=== PATIENT | female | born 1960 | race Caucasian/White ===

== ENCOUNTER 2021-09-10 21:28 | Emergency (ER) | payer BC ==
[2021-09-10 21:35] VITALS: BP 131/73; PULSE 66
--- NOTE | 2021-09-10 22:17 | EDM.PDOC ---
<Joshua Sanches - Last Filed: 09/10/21 22:17> ED HPI GENERAL MEDICAL PROBLEM - General Chief Complaint: Respiratory Problem Stated Complaint: SOB Time Seen by Provider: 09/10/21 22:17 - Related Data Allergies Allergy/AdvReac Type Severity Reaction Status Date / Time No Known Allergies Allergy Verified 09/10/21 21:33 Home Meds: Home Meds Albuterol [Proventil HFA] 2 puff INH Q4H PRN #1 inhaler 09/26/18 [Rx] Codeine/Promethazine [Phenergan with Codeine] 5 - 10 ml PO Q6HR PRN #240 ml 09/26/18 [Rx] Doxycycline [Vibramycin] 100 mg PO BID #20 cap 09/26/18 [Rx] FLUoxetine [PROzac] 10 mg PO DAILY 09/26/18 [History] Levothyroxine [Synthroid] 88 mcg PO DAILY 09/26/18 [History] atorvaSTATin [Lipitor] 10 mg PO DAILY 09/26/18 [History] Benzonatate [Tessalon Perles] 100 mg PO TID PRN #30 cap 09/10/21 [Rx] Past Medical History 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 History: tubal ligation, hysterectomy Musculoskeletal History: Reports: Neck Pain, Chronic Psychiatric History: Reports: Anxiety, Depression Endocrine/Metabolic History: Reports: Hypothyroidism - Past Surgical History HEENT Surgical History: Reports: Naso-Sinus Surgery Musculoskeletal Surgical History: Reports: Other (See Below) Other Musculoskeletal Surgeries/Procedures:: neck fusion Social & Family History - Tobacco Use Tobacco Use Status *Q: Unknown Ever Used Tobacco - Caffeine Use Caffeine Use: Reports: Coffee Departure - Departure Disposition: Home, Self-Care 01 Clinical Impression: Cough - Discharge Information Prescriptions: Benzonatate [Tessalon Perles] 100 mg PO TID PRN #30 cap PRN Reason: Cough Referrals: Gabrielle Ta CHILD CARE COUNSELOR [Primary Care Provider] - Forms: ED Department Discharge Additional Instructions: You were seen in the emergency department this evening with cough and shortness of breath. While you are in the emergency department your oxygen saturations were 99 to 100%. Your lung sounds were clear bilaterally. Chest x-ray was clear and did not show any sign of pneumonia. Lab studies were completed which do not show any sign of infection or inflammatory issues. Electrolytes were all within normal limits as well as kidney function. Covid, influenza a and B and RSV swabs were all negative. Recommend that you follow-up with your primary care provider early next week as you may need pulmonary function studies. Commend using a humidifier in your room. May also try applying Vicks to the bottom of your feet at bedtime. Have sent prescription for medication called Nicole Dong to your pharmacy. You can pick this up tomorrow. You may take 1 pill up to 3 times daily for cough. Recommend taking 1 before bed to be able to get restful sleep. Sepsis Event Note (ED) - Evaluation Sepsis Screening Result: No Definite Risk <Katya Yusuf - Last Filed: 09/10/21 23:21> ED HPI GENERAL MEDICAL PROBLEM - General Source of Information: Reports: Patient History Limitations: Reports: No Limitations - History of Present Illness INITIAL COMMENTS - FREE TEXT/NARRATIVE: 61-year-old female presents to the emergency department this evening with a 1 to 2-month history of cough and shortness of breath. Patient denies any recent fever, chills, nausea, vomiting or diarrhea. She denies any complaints of headache or sore throat. She denies body aches. Chief complaint is persistent cough for which she states is productive of yellow mucus. Patient does have a history of smoking approximately 20 years and is around her who currently smokes. She states her primary care provider is Ramona Ta. She states that even though she has been ill for 1 to 2 months she has not been evaluated by her primary care provider. She has had 2 Covid vaccinations however has not had her Covid booster. Patient states she does have a history of asthma however does not have a nebulizer at home. ED ROS GENERAL - Review of Systems Review Of Systems: Comprehensive ROS is negative, except as noted in HPI. ED EXAM, GENERAL - Physical Exam Exam: See Below Exam Limited By: No Limitations General Appearance: Alert, WD/WN, No Apparent Distress, Anxious Ears: Normal External Exam, Hearing Grossly Normal Nose: Normal Inspection Throat/Mouth: Normal Inspection, Normal Lips, Normal Voice, No Airway Compromise Head: Atraumatic, Normocephalic Neck: Normal Inspection, Supple Respiratory/Chest: No Respiratory Distress, Lungs Clear, Normal Breath Sounds, No Accessory Muscle Use, Chest Non-Tender Cardiovascular: Normal Peripheral Pulses, Regular Rate, Rhythm, No Edema, No Murmur Peripheral Pulses: 2+: Radial (L), Radial (R) GI/Abdominal: Normal Bowel Sounds, Soft, Non-Tender, No Distention (Female) Exam: Deferred Rectal (Female) Exam: Deferred Back Exam: Normal Inspection Extremities: Normal Inspection, Normal Range of Motion, Non-Tender, No Pedal Edema, Normal Capillary Refill Neurological: Alert, Oriented, Normal Cognition Psychiatric: Anxious Skin Exam: Warm, Dry, Intact, Normal Color, No Rash Lymphatic: No Adenopathy Course - Vital Signs Text/Narrative:: As stated above, patient presents with 1 to 2-month history of cough. Upon exam, the patient is being quite dramatic and forcing a dry sounding nonproductive cough in between sentences. When patient is distracted she does stop coughing. She states she cannot breathe however her O2 saturations are 99 to 100% on room air. Lung sounds are clear to all gonzalez. Patient is afebrile and hemodynamically stable. Will obtain portable chest x-ray as well as Covid, influenza a and B and RSV testing on the patient. We will also obtain lab st udies to include a CBC, CMP, magnesium and a C-reactive protein. We will medicate the patient with 1 Tessalon Perles and give her a lozenge. Last Recorded V/S: Last Vital Signs Temp 97.6 F 09/10/21 21:33 Pulse 66 09/10/21 21:33 Resp 15 09/10/21 21:33 BP 131/73 09/10/21 21:33 Pulse Ox 100 09/10/21 21:33 - Orders/Labs/Meds Orders: Active Orders 24 hr Category Date Time Status Chest 1V Frontal [CR] Stat Exams 09/10/21 22:17 Taken Benzocaine/Cetylpyrd/Menthol [Cepacol Sore Throat] Med 09/10/21 22:19 Active 1 lozenge MUCMEM Q1H PRN Isolation [COMM] Routine Oth 09/10/21 22:18 Ordered Medication Orders Benzocaine/Menthol (Benzocaine/Cetylpyridinium/Menthol Lozenge) 1 lozenge MUCMEM Q1H PRN PRN Reason: Cough Labs: Laboratory Tests 11/17/21 11/17/21 11/17/21 Range/Units 21:28 21:28 22:20 WBC 6.32 (3.98-10.04) K/mm3 RBC 3.74 L (3.98-5.22) M/mm3 Hgb 11.8 (11.2-15.7) gm/dl Hct 36.7 (34.1-44.9) % MCV 98.1 H (79.4-94.8) fl MCH 31.6 (25.6-32.2) pg MCHC 32.2 (32.2-35.5) g/dl RDW Std Deviation 45.9 (36.4-46.3) fL Plt Count 209 (182-369) K/mm3 MPV 10.5 (9.4-12.3) fl Neut % (Auto) 44.1 (34.0-71.1) % Lymph % (Auto) 46.2 (19.3-51.7) % [place] % (Auto) 6.5 (4.7-12.5) % Eos % (Auto) 2.1 (0.7-5.8) Baso % (Auto) 0.9 (0.1-1.2) % Neut # (Auto) 2.79 (1.56-6.13) K/mm3 Lymph # (Auto) 2.92 (1.18-3.74) K/mm3 [place] # (Auto) 0.41 H (0.24-0.36) K/mm3 Eos # (Auto) 0.13 (0.04-0.36) K/mm3 Baso # (Auto) 0.06 (0.01-0.08) K/mm3 Sodium 137 (136-145) mEq/L Potassium 4.2 (3.5-5.1) mEq/L Chloride 102 (98-107) mEq/L Carbon Dioxide 28 (21-32) mEq/L Anion Gap 11.2 (5-15) BUN 21 H (7-18) mg/dL Creatinine 0.8 (0.55-1.02) mg/dL Est Cr Clr Drug Dosing 59.89 mL/min Estimated GFR (MDRD) > 60 (>60) mL/min BUN/Creatinine Ratio 26.3 H (14-18) Glucose 102 H (70-99) mg/dL Calcium 8.7 (8.5-10.1) mg/dL Magnesium 2.1 (1.8-2.4) mg/dL Total Bilirubin 0.6 (0.2-1.0) mg/dL AST 22 (15-37) U/L ALT 28 (14-59) U/L Alkaline Phosphatase 60 (46-116) U/L C-Reactive Protein <0.2 (<1.0) mg/dL Total Protein 6.6 (6.4-8.2) g/dl Albumin 3.8 (3.4-5.0) g/dl Globulin 2.8 gm/dL Albumin/Globulin Ratio 1.4 (1-2) Influenza Type A RNA Negative (NEGATIVE) RSV RNA (INAAT) Negative (NEGATIVE) Influenza Type B RNA Negative (NEGATIVE) SARS-CoV-2 RNA (FABY) Negative (NEGATIVE) Meds: Medications Generic Name Dose Route Start Last Admin Trade Name Freq PRN Reason Stop Dose Admin Benzocaine/Menthol 1 lozenge 09/10/21 22:19 Benzocaine/Cetylpyridinium/Menthol Lozenge MUCMEM Q1H PRN Cough Discontinued Medications Generic Name Dose Route Start Last Admin Trade Name Freq PRN Reason Stop Dose Admin Benzonatate 100 mg 09/10/21 22:20 09/10/21 22:38 Benzonatate 100 Mg Cap PO 09/10/21 22:21 100 mg ONETIME ONE Administration - Re-Assessments/Exams Free Text/Narrative Re-Assessment/Exam: 09/10/21 23:13 Audible chest x-ray was reviewed by myself and Dr. Sanches and nothing acute is appreciated. Formal radiologist report is pending. Hematology is unremarkable, chemistry also unremarkable other than a glucose of 102, C-reactive protein less than 0.2, serology is negative for influenza, RSV and Covid. Patient will be discharged home with recommendations that she follow-up with her primary care provider. Departure - Departure Time of Disposition: 23:13 Condition: Good Sepsis Event Note (ED) - Focused Exam Vital Signs: Vital Signs Temp Pulse Resp BP Pulse Ox 09/10/21 21:33 97.6 F 66 15 131/73 100 - My Orders Last 24 Hours: My Active Orders 09/10/21 22:17 Chest 1V Frontal [CR] Stat 09/10/21 22:18 Isolation [COMM] Routine 09/10/21 22:19 Benzocaine/Cetylpyrd/Menthol [Cepacol Sore Throat] 1 lozenge MUCMEM Q1H PRN - Assessment/Plan Last 24 Hours: My Active Orders 09/10/21 22:17 Chest 1V Frontal [CR] Stat 09/10/21 22:18 Isolation [COMM] Routine 09/10/21 22:19 Benzocaine/Cetylpyrd/Menthol [Cepacol Sore Throat] 1 lozenge MUCMEM Q1H PRN
[2021-09-10] MEDS ORDERED: Benzocaine/Cetylpyridinium/Menthol Lozenge MUCMEM PRN (22:19)
[2021-09-10] MEDS ORDERED: Benzonatate 100 MG Cap PO ONE (22:20)
[2021-09-10] MEDS ORDERED: Benzonatate 100 MG Cap ONE (22:32)
[2021-09-10 23:06] LABS: CORONAVIRUS COVID-19 NAA NEGATIVE (NEGATIVE)
--- NOTE | 2021-09-11 06:07 | CR ---
Chest: Portable view of the chest was obtained. Comparison: Prior chest x-ray of 09/26/18. Heart size and mediastinum are within normal limits for portable technique. Lungs are clear with no acute parenchymal change. Stable scoliosis is noted within the spine. Impression: 1. Nothing acute is appreciated on portable chest x-ray. Diagnostic code #2
== END 2021-09-10 23:32 | disposition home or self-care (01) ==
LOC: JD.ED 21:28
DX: R05.9 Cough, unspecified (principal); E03.9 Hypothyroidism, unspecified; Z79.899 Other long term (current) drug therapy; Z20.822 Contact with and (suspected) exposure to COVID-19
CPT/HCPCS: 0241U; 36415; 71045; 71045-26; 80053; 83735; 85025; 86140; 99283; 99283-25; A9270-GY

== ENCOUNTER 2023-10-05 07:02 | Day surgery (SDC) | payer BC ==
[~2023-10-05 07:02] MED LIST: Lactated Ringers 1,000 ML IV SCH; Lidocaine 1%/Sod Bicarbonate in NS 8.4% 1 ML Syringe IDERM PRN; Sodium Chloride 0.9% 10 ML Syringe FLUSH PRN; Sodium Chloride 0.9% 10 ML Syringe FLUSH SCH
[2023-10-05] MEDS ORDERED: Propofol 200 MG/20 ML SDV ONE ×2 (07:10→08:12)
[2023-10-05] MEDS ORDERED: Lidocaine 1% 6 ML ONE (07:13)
[2023-10-05 09:52] VITALS: BP 136/78; PULSE 58
== END 2023-10-05 09:12 | disposition home or self-care (01) ==
LOC: JD.SDS 07:02
PROVIDERS: ATTEND Surgery
DX: Z12.11 Encounter for screening for malignant neoplasm of colon (principal); K62.1 Rectal polyp; K57.30 Diverticulosis of large intestine without perforation or abscess without bleeding; K64.8 Other hemorrhoids; K64.4 Residual hemorrhoidal skin tags; I10 Essential (primary) hypertension; E03.9 Hypothyroidism, unspecified; F32.A Depression, unspecified; E78.00 Pure hypercholesterolemia, unspecified; Z98.84 Bariatric surgery status; Z87.891 Personal history of nicotine dependence; Z90.710 Acquired absence of both cervix and uterus; Z98.51 Tubal ligation status; Z79.890 Hormone replacement therapy; Z79.899 Other long term (current) drug therapy
CPT/HCPCS: 45380; J2704; J7120; J3490